=== PATIENT | female | born 1960 ===

== ENCOUNTER 2022-11-03 20:05 | Observation (INO) | payer OTHER ==
[~2022-11-03] VITALS: Ht 152.4 cm; Wt 65.6 kg
[2022-11-03 21:12] LABS: BASOPHILS ABSOLUTE AUTO 0.05 K/mm3 (0.00-0.23); BASOPHILS PERCENT AUTO 1 % (0-2); EOSINOPHILS ABSOLUTE AUTO 0.11 K/mm3 (0.00-0.68); EOSINOPHILS PERCENT AUTO 1 % (0-6); Hematocrit 41.7 % (33.0-51.0); Hemoglobin 13.7 g/dL (11.5-16.0); IMMATURE GRAN ABSOLUTE AUTO 0.01 K/mm3 (0.00-0.10); IMMATURE GRAN PERCENT AUTO 0 % (0-1); LYMPHOCYTES PERCENT AUTO 29 % (21-46); MONOCYTES ABSOLUTE AUTO 0.54 K/mm3 (0.16-1.47); MONOCYTES PERCENT AUTO 6 % (4-13); Mean Corpuscular HGB 28.7 pg (26.0-34.0); Mean Corpuscular HGB Conc 32.9 g/dL (31.5-36.5); Mean Corpuscular Volume 87 fL (80-100); Mean Platelet Volume 9.8 fL (9.1-12.4); NEUTROPHILS ABSOLUTE AUTO 5.76 K/mm3 (1.96-9.15); NEUTROPHILS PERCENT AUTO 63 % (41-73); Platelet Count 321 K/mm3 (150-400); RDW Standard Deviation 41.9 fL (35.1-46.3); Red Blood Cell Count 4.78 M/mm3 (3.80-5.20); White Blood Cell Count 9.17 K/mm3 (4.00-11.30)
[2022-11-03] MEDS ORDERED: CARBIDOPA-LEVO1 EA15 PO (21:14)
[2022-11-03] MEDS ORDERED: FAMO20 (21:14)
[2022-11-03] MEDS ORDERED: PANTOPRAZOLE SO40 M2 PO (21:14)
[2022-11-03 21:17] LABS: Albumin, Blood 3.6 g/dL (3.4-5.0); Bilirubin, Total 0.3 mg/dL (0.1-1.0); Bun/Creatinine Ratio 25.5 (12.0-20.0); Calcium, Blood 9.2 mg/dL (8.5-10.1); Creatinine, Blood 0.71 mg/dL (0.40-1.00); Globulin, Blood 3.5 g/dL (2.2-4.0); Potassium, Blood 3.7 mmol/L (3.5-5.5); Total Protein, Blood 7.1 g/dL (6.4-8.2)
[2022-11-04 04:21] VITALS: BP 124/68
--- NOTE | 2022-11-04 04:46 | NUR ---
ARRIVAL TO UNIT PT ARRIVED TO THE UNIT AT APPROX 0415, A/O X4- STAND AND TRANSFER FROM WHEELCHAIR TO BED INDEPENDENTLY. VITALS TAKEN. NO REPORT OF PAIN AT THIS TIME. ASSESSMENT COMPLETE.
[2022-11-04 07:46] VITALS: BP 128/63
[2022-11-04 15:00] VITALS: BP 117/63
[2022-11-04 17:03] VITALS: BP 117/63
[2022-11-04] MEDS ORDERED: Percocet 5-3251 EACH PO (17:19)
--- NOTE | 2022-11-04 17:56 | NUR ---
SHIFT SUMMARY PT A&OX4, VSS/RA, JOANNA PO, VOIDING, PAIN MANAGED AND DENIES N&V AT THIS TIME, AMB INDEPENDENTLY, SHOWERED AND DRESSED SELF, IV DC'D. DC INS PROVIDED. PT REP UNDERSTANDING THOSE INSTRUCTIONS. LEFT FLOOR VIA WC WITH METER READER INSPECTOR TO GO HOME WITH GRANDDAUGHTER WITH ALL PERSONAL POSSESSIONS INCLUDING DC PACKET AND 1 NARC SCRIPT.
== END 2022-11-04 17:30 | disposition home or self-care (01) ==
LOC: ER 20:05 → SURS 20:06 → ER 11-04 04:17 → SURS 11-04 04:17
PROVIDERS: Student in an Organized Health Care Education/Training Program; ADMIT Surgery
DX: R10.13 Epigastric pain (principal); R11.2 Nausea with vomiting, unspecified; Z98.84 Bariatric surgery status; Z88.1 Allergy status to other antibiotic agents
CPT/HCPCS: 74177; 76705; 80053; 83690; 84484; 85025; 93005; 93010; 96361; 96374-59; 96375; 96376; 99285-25; A9270; J1170; J2270; J2405; J2765; J3010; J7030; Q9967